=== PATIENT | female | born 1975 | race Caucasian/White ===

== ENCOUNTER 2019-03-19 08:11 | Observation (INO) | payer BC ==
[2019-03-19] MEDS: CEFAZOLIN 1 GM/50 ML (PMX) 50 ML IVPB (10:00)
[2019-03-19] MEDS ORDERED: SOD CHLORIDE 0.9% 1,000 ML IV (10:00)
[2019-03-19] MEDS ORDERED: ALBUTEROL 0.083% (NEB) 2.5 MG/3 ML AMP HHN (11:00)
[2019-03-19] MEDS ORDERED: MEPERIDINE 25 MG INJ IV (11:00)
[2019-03-19] MEDS ORDERED: METOCLOPRAMIDE 10 MG INJ IV (11:00)
[2019-03-19] MEDS ORDERED: FENTAnyl 50 MCG/ML VIAL IV ×3 (11:00)
[2019-03-19] MEDS ORDERED: HYDROmorphONE 1 MG/5 ML IV SYRINGE IV ×3 (11:00)
[2019-03-19] MEDS ORDERED: DESFLURANE 15 MIN (11:16)
[2019-03-19] MEDS ORDERED: FENTAnyl 50 MCG/ML VIAL ×2 (11:16→12:30)
[2019-03-19] MEDS ORDERED: LIDOCAINE 100 MG SYRINGE (11:42)
[2019-03-19] MEDS ORDERED: ROCURONIUM 50 MG INJ (11:42)
[2019-03-19] MEDS ORDERED: SUGAMMADEX SODIUM 200 MG/2 ML VIAL IV (11:42)
[2019-03-19] MEDS ORDERED: CEFAZOLIN 1 GM INJ (11:42)
[2019-03-19] MEDS ORDERED: PROPOFOL 20 ML (11:42)
[2019-03-19] MEDS ORDERED: SUCCINYLCHOLINE CHLORIDE 100 MG/5 ML SYG IV (11:42)
[2019-03-19] MEDS: BUPIVACAINE 0.25% (MPF) 30 ML INJ (11:53)
[2019-03-19 13:22] LABS: ADD MAN DIFF? NO
[2019-03-19 13:24] LABS: BASOPHILS % 0.4 % (0.0-2.0); EOSINOPHILS # 0.1 10^3/ul (0.0-0.5); EOSINOPHILS % 0.6 % (0.0-7.0); HEMATOCRIT 31.6 % (37.0-47.0); LYMPHOCYTES # 1.9 10^3/ul (0.8-2.9); LYMPHOCYTES % 21.1 % (15.0-51.0); MEAN CORPUSCULAR HEMOGLOBIN 26.7 pg (29.0-33.0); MEAN CORPUSCULAR HGB CONC 31.6 g/dl (32.0-37.0); MEAN CORPUSCULAR VOLUME 84.3 fl (82.0-101.0); MEAN PLATELET VOLUME 8.5 fl (7.4-10.4); MONOCYTE # 0.6 10^3/ul (0.3-0.9); MONOCYTES % 6.3 % (0.0-11.0); NEUTROPHIL # 6.3 10^3/ul (1.6-7.5); NEUTROPHILS % 69.7 % (39.0-77.0); PLATELET COUNT 191 10^3/UL (140-415); RED BLOOD COUNT 3.75 10^6/ul (4.20-5.40)
[2019-03-19 13:24] LABS: WHITE BLOOD COUNT 9.1 10^3/ul (4.8-10.8)
[2019-03-19] MEDS: ONDANSETRON 4 MG INJ IV ×2 (13:30→17:21)
[2019-03-19 13:41] LABS: ALANINE AMINOTRANSFERASE 51 IU/L (13-69); ALBUMIN 3.8 g/dl (3.3-4.9); ALBUMIN/GLOBULIN RATIO 1.22; ALKALINE PHOSPHATASE 78 IU/L (42-121); ANION GAP 11 (5-13); ASPARTATE AMINO TRANSFERASE 34 IU/L (15-46); BILIRUBIN,INDIRECT 0.1 mg/dl (0-1.1); BILIRUBIN,TOTAL 0.1 mg/dl (0.2-1.3); BLOOD UREA NITROGEN 8 mg/dl (7-20); CALCIUM 8.6 mg/dl (8.4-10.2); CARBON DIOXIDE 23 mmol/L (21-31); CHLORIDE 106 mmol/L (97-110); CREATININE 0.66 mg/dl (0.44-1.00); Estimated GFR > 60 mL/min (>60); GLUCOSE 158 mg/dl (70-220); POTASSIUM 3.5 mmol/L (3.5-5.1); SODIUM 140 mmol/L (135-144); TOTAL PROTEIN 6.9 g/dl (6.1-8.1)
[2019-03-19] MEDS: CEFAZOLIN 2 GM/50 ML (PMX) 50 ML IVPB ×2 (13:45→21:12)
[2019-03-19] MEDS: DIPHENHYDRAMINE 50 MG INJ IV (13:49)
[2019-03-19] MEDS: LACTATED RINGER'S 1,000 ML IV (14:30)
[2019-03-19] MEDS ORDERED: hydrALAzine 20 MG INJ IV (15:00)
[2019-03-19] MEDS ORDERED: ONDANSETRON 4 MG INJ IV ×2 (15:00→17:30)
[2019-03-19] MEDS: METOCLOPRAMIDE 10 MG INJ IV (15:14)
[2019-03-19] MEDS: hydrALAzine 20 MG INJ IV ×3 (15:15→21:14)
[2019-03-19] MEDS: ACCU-CHEK XX ×2 (15:28→21:00)
[2019-03-19] MEDS: morphine 2 MG INJ IV (15:29)
[2019-03-19] MEDS: LISINOPRIL 10 MG TAB PO ×2 (16:56→17:10)
[2019-03-19] MEDS: INSULIN ASPART [NOVOLOG] 3 ML PEN SC (17:55)
[2019-03-19] MEDS: metFORMIN 500 MG TAB PO (17:55)
[2019-03-19] MEDS ORDERED: GLUCOSE GEL 15 GRAM TUBE PO ×2 (20:00)
[2019-03-19] MEDS ORDERED: DEXTROSE 50% 50 ML SYRINGE IV ×2 (20:00)
[2019-03-19] MEDS ORDERED: GLUCAGON 1 MG INJ IM (20:00)
[2019-03-19] MEDS ORDERED: GLUCOSE GEL 15 GRAM TUBE BUCCAL (20:00)
[2019-03-19] MEDS: QUETIAPINE 100 MG TAB PO (21:13)
[2019-03-19] MEDS: ONDANSETRON INJ 8 MG in DEXTROSE 5% 50 ML IV (21:37)
[2019-03-19 21:39] LABS: CALCIUM 8.6 mg/dl (8.4-10.2)
[2019-03-20] MEDS: LACTATED RINGER'S 1,000 ML IV ×2 (02:00→03:56)
[2019-03-20] MEDS: METOCLOPRAMIDE 10 MG INJ IV (03:56)
[2019-03-20] MEDS: morphine 2 MG INJ IV (04:15)
[2019-03-20] MEDS: CEFAZOLIN 2 GM/50 ML (PMX) 50 ML IVPB (04:17)
[2019-03-20 05:11] LABS: ADD MAN DIFF? NO
[2019-03-20 05:16] LABS: BASOPHILS % 0.3 % (0.0-2.0); EOSINOPHILS % 0.2 % (0.0-7.0); HEMATOCRIT 31.4 % (37.0-47.0); HEMOGLOBIN 10.1 g/dl (12.0-16.0); LYMPHOCYTES % 9.1 % (15.0-51.0); MEAN CORPUSCULAR HEMOGLOBIN 26.9 pg (29.0-33.0); MEAN CORPUSCULAR HGB CONC 32.2 g/dl (32.0-37.0); MEAN CORPUSCULAR VOLUME 83.5 fl (82.0-101.0); MEAN PLATELET VOLUME 8.6 fl (7.4-10.4); MONOCYTE # 0.7 10^3/ul (0.3-0.9); MONOCYTES % 6.7 % (0.0-11.0); NEUTROPHILS % 82.3 % (39.0-77.0); PLATELET COUNT 214 10^3/UL (140-415); RED BLOOD COUNT 3.76 10^6/ul (4.20-5.40); RED CELL DISTRIBUTION WIDTH 14.9 % (11.5-14.5)
[2019-03-20 05:36] LABS: ALANINE AMINOTRANSFERASE 54 IU/L (13-69); ALBUMIN/GLOBULIN RATIO 1.21; ALKALINE PHOSPHATASE 79 IU/L (42-121); ANION GAP 11 (5-13); ASPARTATE AMINO TRANSFERASE 36 IU/L (15-46); BILIRUBIN,INDIRECT 0.3 mg/dl (0-1.1); BILIRUBIN,TOTAL 0.3 mg/dl (0.2-1.3); BLOOD UREA NITROGEN 6 mg/dl (7-20); CALCIUM 8.8 mg/dl (8.4-10.2); CARBON DIOXIDE 27 mmol/L (21-31); CHLORIDE 99 mmol/L (97-110); CREATININE 0.66 mg/dl (0.44-1.00); Estimated GFR > 60 mL/min (>60); GLUCOSE 148 mg/dl (70-220); POTASSIUM 3.3 mmol/L (3.5-5.1); SODIUM 137 mmol/L (135-144); TOTAL PROTEIN 7.3 g/dl (6.1-8.1)
[2019-03-20] MEDS: LEVOTHYROXINE 175 MCG TAB PO (07:00)
[2019-03-20] MEDS: LAMOTRIGINE 100 MG TAB PO (08:34)
[2019-03-20] MEDS: ACCU-CHEK XX ×2 (08:34→12:40)
[2019-03-20] MEDS: metFORMIN 500 MG TAB PO (08:34)
[2019-03-20] MEDS: LISINOPRIL 10 MG TAB PO (08:35)
[2019-03-20] MEDS: INSULIN ASPART [NOVOLOG] 3 ML PEN SC ×2 (08:40→12:40)
[2019-03-20] MEDS ORDERED: LISINOPRIL 5 MG TAB PO (09:00)
[2019-03-20 11:40] LABS: CALCIUM 8.9 mg/dl (8.4-10.2)
[2019-03-20] MEDS: HYDROCODONE/APAP (5/325) TAB PO (12:44)
[2019-03-20] MEDS: POTASSIUM CHLORIDE 20 MEQ POWDER FOR ORAL SOLN PO (15:57)
== END 2019-03-20 17:00 | disposition home or self-care (01) ==
LOC: SUR 08:11 → REC 12:56 → MS1 14:18
PROVIDERS: Surgery
DX: C73 Malignant neoplasm of thyroid gland (principal); E11.9 Type 2 diabetes mellitus without complications; I10 Essential (primary) hypertension
CPT/HCPCS: 60240; 80053; 82310; 82962; 84703; 85025; 88307; 99217